=== PATIENT | female | born 1970 | race Caucasian/White ===

== ENCOUNTER → 2017-02-04 | Outpatient (CLI) | payer OTHER | LOC: FIMAGING 13:27 | PROVIDERS: ATTEND Nurse Practitioner | DX: R20.0 Anesthesia of skin (principal); R20.2 Paresthesia of skin; H53.8 Other visual disturbances; R47.89 Other speech disturbances ==

== ENCOUNTER 2017-03-07 13:57 | Outpatient (CLI) | payer OTHER ==
[2017-03-07] MEDS ORDERED: GADOBUTROL 10 ML VIAL IVP ONE (14:49)
[2017-03-07] MEDS ORDERED: PROPOFOL 200 MG/20 ML VIAL ONE (15:18)
[2017-03-07] MEDS ORDERED: PROPOFOL/EMULSION 500 MG/50 ML BOTTLE IV ONE (15:18)
--- NOTE | 2017-03-07 15:27 | PDANEPAE ---
ANE History of Present Illness mri ANE Past Medical History - Cardiovascular History Hx Hypertension: Yes Hx Arrhythmias: No Hx Chest Pain: No Hx Coronary Artery / Peripheral Vascular Disease: No Hx CHF / Valvular Disease: No Hx Palpitations: No - Pulmonary History Hx COPD: No Hx Asthma/Reactive Airway Disease: No Hx Recent Upper Respiratory Infection: Yes Hx Oxygen in Use at Home: No Hx Sleep Apnea: Yes Sleep Apnea Screening Result - Last Documented: Positive Pulmonary History Comment: PNA x 4 over last 6 years; - Neurologic History Hx Cerebrovascular Accident: No Hx Seizures: No Hx Dementia: No - Endocrine History Hx Diabetes: No - Renal History Hx Renal Disorders: No - Liver History Hx Hepatic Disorders: No - Neurological & Psychiatric Hx Hx Neurological and Psychiatric Disorders: Yes Neurological / Psychiatric History Comment: depression; anxiety; - Cancer History Hx Cancer: No - Congenital Disorder History Hx Congenital Disorders: Yes Congenital History Comment: spina-bifida - GI History Hx Gastrointestinal Disorders: Yes Gastrointestinal History Comment: stomach ulcer; chronic irritation; chronic nausea due to medication; constipation; - Other Health History Other Health History: RA; back pain; blurry vison; numbness in B hands (worse in right hand 3,4,5 digets); closterphobia; - Chronic Pain History Chronic Pain: Yes (feet, hands, joints) - Surgical History Prior Surgeries: T&A; teeth extractions; 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; teeth implants x 2; ANE Review of Systems Review of Systems: - Exercise capacity METS (RN): 4 METS ANE Patient History - Allergies Allergies/Adverse Reactions: hydroxyzine [From Vistaril] Allergy (Verified 03/01/17 12:40) "made me VERY angry" nystatin Allergy (Verified 03/01/17 12:40) "my tongue swells" - Home Medications Home Medications: Ativan 1 mg PO DAILY 03/01/17 [Last Taken 03/06/17] Diflucan 150 mg PO 03/01/17 [Last Taken 02/28/17] FOLIC ACID 1 mg PO DAILY 03/01/17 [Last Taken 03/07/17] Methotrexate 0.8 ml SQ 03/01/17 [Last Taken 03/05/17] Oxycontin 20 mg PO BID 03/01/17 [Last Taken 03/07/17] Protonix 40 mg PO DAILY 03/01/17 [Last Taken 02/28/17] Ranitidine HCl 150 mg PO DAILY 03/01/17 [Last Taken 03/06/17] Rituxan 1,000 mg IV 03/01/17 [Last Taken 03/04/17] Vitamin D3 5,000 units PO DAILY 03/01/17 [Last Taken 03/07/17] Zofran Odt 4 mg (*) 4 mg PO Q6 PRN 03/01/17 [Last Taken 03/04/17] Zoloft 50mg (*) 50 mg PO DAILY 03/01/17 [Last Taken 03/07/17] oxyCODONE HCL 15 mg PO Q4H PRN 03/01/17 [Last Taken 03/07/17] traZODone 75 mg PO DAILY 03/01/17 [Last Taken 03/06/17] - NPO status NPO Status: no food or drink >8 hours - Smoking Hx Smoking Status: Former smoker - Family Anes Hx Family Hx Anesthesia Complications: Paranoid while waking (father); ANE Labs/Vital Signs - Vital Signs Blood Pressure: 123/80 Heart Rate: 72 Respiratory Rate: 16 O2 Sat (%): 90 Height: 167.64 cm Weight: 108.862 kg ANE Physical Exam - Airway Mallampati Score: Class 2 Mouth exam: normal dental/mouth exam - Pulmonary Pulmonary: no respiratory distress - Cardiovascular Cardiovascular: regular rate and rhythym - ASA Status ASA Status: II ANE Anesthesia Plan Anesthesia Plan: general endotracheal anesthesia
[2017-03-07] MEDS ORDERED: SUGAMMADEX SODIUM 200 MG/2 ML VIAL IVP ONE (15:29)
[2017-03-07] MEDS ORDERED: ROCURONIUM 100 MG/10 ML VIAL ONE (15:31)
[2017-03-07] MEDS ORDERED: SUCCINYLCHOLINE CHLORIDE 200 MG/10 ML VIAL ONE (15:31)
[2017-03-07] MEDS ORDERED: MIDAZOLAM 2 MG/2 ML VIAL ONE (15:45)
[2017-03-07] MEDS ORDERED: fentaNYL 100 MCG/2 ML INJ IVP PRN (16:11)
[2017-03-07] MEDS ORDERED: MIDAZOLAM 2 MG/2 ML VIAL IVP ONE (16:11)
[2017-03-07] MEDS ORDERED: LR 500 ML IV PRN (16:11)
[2017-03-07] MEDS ORDERED: ONDANSETRON 4 MG/2 ML VIAL IVP PRN (16:11)
[2017-03-07] MEDS ORDERED: OXYCODONE/APAP 5/325 TAB PO PRN (16:11)
[2017-03-07] MEDS ORDERED: ALBUTEROL 3 ML DEYVIAL IH PRN (16:11)
[2017-03-07] MEDS ORDERED: NALOXONE HCL 0.4 MG/ML INJ IVP PRN (16:11)
[2017-03-07] MEDS ORDERED: HYDROmorphONE/DILAUDID 1 MG/ML INJ IVP PRN (16:11)
--- NOTE | 2017-03-07 17:20 | POSTANESTH ---
Post Anesthetic Evaluation Cardiovascular Status: Normal, Stable Respiratory Status: Normal, Stable Level of Consciousness/Mental Status: Can Participate in Eval Pain Control: Adequate, Prn Tx Ordered Nausea/Vomiting Control: Adequate, Prn Tx Ordered Complications Possibly Related to Anesthesia: None Noted
[2017-03-07] MEDS ORDERED: ALBUTEROL 3 ML DEYVIAL ONE (17:24)
[2017-03-07 17:52] VITALS: BP 107/81; PULSE 96; RESP 14; O2SAT 95
[2017-03-07 17:59] VITALS: TEMP 98.4
[2017-03-07] MEDS ORDERED: LIDOCAINE 2% 5 ML SDV ONE (18:47)
== END 2017-03-07 17:56 | disposition home or self-care (01) ==
LOC: FIMAGING 13:57
PROVIDERS: ATTEND Nurse Practitioner
DX: M50.21 Other cervical disc displacement, high cervical region (principal); M46.92 Unspecified inflammatory spondylopathy, cervical region; M46.93 Unspecified inflammatory spondylopathy, cervicothoracic region; M48.02 Spinal stenosis, cervical region
CPT/HCPCS: A9585; J0330; J2250; J2704; J7613